=== PATIENT | female | born 1950 | race Caucasian/White ===

== ENCOUNTER 2016-07-03 13:20 | Observation (INO) | payer MEDICARE, MEDICAID ==
[2016-07-03] VITALS (8 sets, daily range): BP systolic 116–132; RESP 18; TEMP 97.6–98.2; Ht 170.2 cm; Wt 95.2 kg
[~2016-07-03] VITALS: Ht 170.2 cm; Wt 95.2 kg
[2016-07-03] MEDS ORDERED: ONDANSETRON 4 MG VIAL IV PRN (20:05)
[2016-07-03] MEDS ORDERED: SALINE FLUSH 10 ML FLUSH PRN (20:05)
[2016-07-03] MEDS: PANTOPRAZOLE 80 MG in SODIUM CHLORIDE 0.9% 250 ML IV SCH (20:38)
[2016-07-03] MEDS ORDERED: ACETAMINOPHEN 325 MG TAB PO PRN (22:55)
[2016-07-04] VITALS (24 sets, daily range): BP systolic 88–178; RESP 16–29; TEMP 97.9–98.9
[2016-07-04] MEDS: SODIUM CHLORIDE 0.9% FLUSH BAG 500 ML IV SCH (06:23)
[2016-07-04] MEDS: SALINE FLUSH 10 ML FLUSH SCH ×2 (07:41→20:30)
[2016-07-04] MEDS: PANTOPRAZOLE 80 MG in SODIUM CHLORIDE 0.9% 250 ML IV SCH ×2 (07:42→20:30)
[2016-07-04] MEDS ORDERED: CYANOCOBALAMIN 1000 MCG/ML VIAL IM ONE (17:35)
[2016-07-04] MEDS ORDERED: IRON SUCROSE COMPLEX 500 MG in SODIUM CHLORIDE 0.9% 250 ML IV ONE (17:35)
[2016-07-04] MEDS ORDERED: LOPERAMIDE 2 MG CAPSULE PO PRN (18:30)
[2016-07-04] MEDS ORDERED: ACETAMINOPHEN 500 MG TAB PO PRN (18:30)
[2016-07-04] MEDS: ESCITALOPRAM 10 MG TAB PO SCH (19:11)
[2016-07-04] MEDS: METOPROLOL XL 100 MG TAB PO SCH (19:11)
[2016-07-04] MEDS: amLODIPine 5 MG TAB PO SCH (19:11)
[2016-07-04] MEDS: BUSPIRONE HCL 15 MG TAB PO SCH (20:30)
[2016-07-05 03:51] VITALS: BP_SYST 150; RESP 18; TEMP 98.1
[2016-07-05] MEDS: SODIUM CHLORIDE 0.9% FLUSH BAG 500 ML IV SCH (06:30)
[2016-07-05] MEDS: PANTOPRAZOLE 80 MG in SODIUM CHLORIDE 0.9% 250 ML IV SCH (06:30)
[2016-07-05 07:30] VITALS: BP_SYST 145; RESP 18; TEMP 97.9
[2016-07-05] MEDS: SALINE FLUSH 10 ML FLUSH SCH (08:00)
[2016-07-05] MEDS: BUSPIRONE HCL 15 MG TAB PO SCH (08:35)
[2016-07-05] MEDS: METOPROLOL XL 100 MG TAB PO SCH (08:35)
[2016-07-05] MEDS: amLODIPine 5 MG TAB PO SCH (08:35)
[2016-07-05] MEDS: ESCITALOPRAM 10 MG TAB PO SCH (08:35)
[2016-07-05] MEDS ORDERED: CYANOCOBALAMIN 1000 MCG/ML VIAL IM SCH (09:00)
[2016-07-05] MEDS ORDERED: IRON SUCROSE COMPLEX 500 MG in SODIUM CHLORIDE 0.9% 250 ML IV SCH (09:00)
[2016-07-05] MEDS ORDERED: LORATADINE 10 MG TAB PO SCH (09:00)
[2016-07-05] MEDS ORDERED: PROPOFOL 50ML VIAL IV ONE (10:21)
[2016-07-05 10:54] VITALS: BP_SYST 142; RESP 20; TEMP 98.8
[2016-07-05] MEDS ORDERED: PANTOPRAZOLE 40 MG TAB PO SCH (11:05)
[2016-07-05] MEDS ORDERED: MISSING DOSE XX ONE (11:40)
[2016-07-05] MEDS ORDERED: LIDOCAINE 2% SYR 5 ML IV ONE (13:27)
== END 2016-07-05 13:28 | disposition left against medical advice (07) ==
LOC: ENRESERVTM → ENRESERVDT → ER 13:20 → EMR 18:00 → PCU 18:43
PROVIDERS: ADMIT Internal Medicine; ATTEND Internal Medicine
CPT/HCPCS: 36415 ×2; 36430 ×2; 43239; 80048 ×2; 80053 ×2; 82274 ×2; 82607 ×2; 82728 ×2; 82746 ×2; 83010 ×2; 83540 ×2; 83615 ×2; 84466 ×2; 85025 ×2; 85046 ×2; 85610 ×2; 85730 ×2; 86850 ×2; 86900 ×2; 86901 ×2; 86923 ×2; 88305 ×2; 94799; 97799; 99232; 99285; G0378; J1756; J7050; P9016